=== PATIENT | female | born 2000 | race American Indian/Alaskan Native ===

== ENCOUNTER 2021-11-21 17:32 | Emergency (ER) | payer SELFPAY ==
[2021-11-21] MEDS ORDERED: ZIPRASIDONE MESYLATE 20 MG VIAL IM ONE (17:56)
[2021-11-21] MEDS ORDERED: ZIPRASIDONE MESYLATE 20 MG VIAL IM PRN (17:58)
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
[2021-11-21 23:33] LABS: Basophils % (Auto) 0.4 % (0.0-1.8); Eosinophils % (Auto) 0.1 % (0.0-4.3); Hematocrit 41.5 % (30.3-42.9); Hemoglobin 14.1 gm/dl (10.1-14.3); Lymphocytes # (Auto) 1.5 K/mm3 (1.2-5.4); Mean Corpuscular HGB Conc 34 % (30-34); Mean Corpuscular Volume 98 fl (79-97); Monocytes # (Auto) 0.6 K/mm3 (0.0-0.8); Monocytes % (Auto) 7.5 % (0.0-7.3); Platelet Count 204 K/mm3 (140-440); Red Blood Count 4.26 M/mm3 (3.65-5.03); Red Cell Distribution Width 12.5 % (13.2-15.2)
[2021-11-21 23:45] LABS: BUN/Creatinine Ratio 10; Blood Urea Nitrogen 8 mg/dL (7-17); Calcium 9.3 mg/dL (8.4-10.2); Hemolysis Index 13
[2021-11-22 08:54] LABS: Mucus,Urine 3+ /HPF
[2021-11-22 08:58] LABS: Color,Urine Dark Yellow (Yellow)
[2021-11-22 09:15] LABS: Amphetamine Screen,Urine Negative; Benzodiazepines Screen,Urine Negative; Cocaine Screen,Urine Negative; Methadone Screen,Urine Negative; Opiate Screen,Urine Negative
[2021-11-22 09:28] LABS: Cannabinoid Screen,Urine Positive
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
[2021-11-22 11:20] VITALS: BP 112/67
== END 2021-11-22 13:00 | disposition home or self-care (01) ==
LOC: EEVIPCON 17:32 → ED 17:32
DX: Z91.19 Patient's noncompliance with other medical treatment and regimen (principal); R45.6 Violent behavior; G47.00 Insomnia, unspecified; Z20.822 Contact with and (suspected) exposure to COVID-19
CPT/HCPCS: 36415; 80048; 80307; 81001; 84443; 84703; 85025; 96372; 99284; J3486; U0003; 80320; G0480